=== PATIENT | female | born 1975 | race Caucasian/White ===

== ENCOUNTER 2018-08-12 17:55 | Emergency (ER) | payer BC ==
[2018-08-12 18:39] VITALS: BP 117/66
--- NOTE | 2018-08-12 21:11 | RAD ---
EXAM: CT Abdomen and Pelvis Without Intravenous Contrast CLINICAL HISTORY: 43 years old, female; Pain; Other: Lt flank pain; Prior surgery; Surgery date: 6+ months; Surgery type: Essure coils. Uterine mass removed 10 yrs ago; Additional info: Left flank pain TECHNIQUE: Axial computed tomography images of the abdomen and pelvis without intravenous contrast. All CT scans at this facility use at least one of these dose optimization techniques: automated exposure control; mA and/or kV adjustment per patient size (includes targeted exams where dose is matched to clinical indication); or iterative reconstruction. Coronal and sagittal reformatted images were created and reviewed. COMPARISON: DX - (L-SPINE L5-S1, PELVIS, ) 05/25/2013 10:09 AM FINDINGS: Lung bases: Unremarkable. No mass. No consolidation. ABDOMEN: Liver: Unremarkable. Gallbladder and bile ducts: Unremarkable. No calcified stones or biliary dilation. Pancreas: Unremarkable. No mass Spleen: Unremarkable. Adrenals: Unremarkable. No mass. Kidneys and ureters: A 3 mm calcification is noted near the expected location of the left UVJ. However, there is no significant perinephric stranding or hydronephrosis on either side. Stomach and bowel: Unremarkable. No obstruction. PELVIS: Appendix: No findings to suggest acute appendicitis. Bladder: The urinary bladder is decompressed but contains no calcified stones. Reproductive: A 4.7 cm cystic structure is present in the left adnexa. The uterus is prominent. Bilateral fallopian tube closure devices in place. ABDOMEN and PELVIS: Intraperitoneal space: A tiny amount of free fluid is noted in the pelvis. Bones/joints: No acute fracture or aggressive osseous lesions Soft tissues: Unremarkable. Vasculature: Unremarkable. No abdominal aortic aneurysm. Lymph nodes: Unremarkable. No enlarged lymph nodes. Tubes, lines and devices: IMPRESSION: 1. 3 mm calcification in the left pelvis suggests either phlebolith versus nonobstructing distal ureteral calculus at the left UVJ. No hydronephrosis or hydroureter. If there is continued clinical concern, contrast enhanced CT may be helpful.. 2. 4.7 cm left adnexal cyst, possibly arising from the left ovary. Pelvic ultrasound may be helpful for further assessment. 3. Small amount of free fluid in the pelvis.
--- NOTE | 2018-08-12 21:53 | UC ---
Abdominal Pain Female HPI - HPI Summary HPI Summary: 43 year old woman comes to the clinic with a complaint of intermittent left flank pain. She's had 2 episodes today. When she has the pain she cannot make it worse or better. It's in the left flank and it does radiate down towards the left groin. No fevers. Patient is having her menses now and she has blood in her urine. No prior history of kidney stones. She has an IUD in place. No abdominal surgeries. - History of Current Complaint Chief Complaint: UCBackPain Stated Complaint: LEFT SIDE BACK PAIN Time Seen by Provider: 08/12/18 18:37 Hx Last Menstrual Period: 08/11/18 Pain Intensity: 0 Pain Scale Used: 0-10 Numeric Allergies/Adverse Reactions: Allergies Allergy/AdvReac Type Severity Reaction Status Date / Time No Known Allergies Allergy Verified 08/12/18 18:28 Home Medications: Home Medications Folic Acid TAB* [Folvite TAB*] 1 mg PO DAILY 08/12/18 [History Confirmed ] Ibuprofen TAB* [Advil TAB*] 600 mg PO Q6H PRN 08/12/18 [History Confirmed ] Methotrexate TAB* 2.5 mg PO Q7D 08/12/18 [History Confirmed 08/12/18] PMH/Surg Hx/FS Hx/Imm Hx Previously Healthy: Yes Cardiovascular History: Hypertension - Surgical History Surgical History: Yes Surgery Procedure, Year, and Place: ESURE COILS. UTERINE MASS REMOVED 10 YRS AGO AT [facility] - Family History Known Family History: Positive: Other - SISTER WITH OVARIAN CYSTS NO FHX OF KIDNEY STONES - Social History Alcohol Use: Rare Substance Use Type: None Smoking Status (MU): Never Smoked Tobacco Review of Systems Constitutional: Negative Skin: Negative Eyes: Negative ENT: Negative Respiratory: Negative Cardiovascular: Negative Gastrointestinal: Abdominal Pain - LEFT FLANK, Vomiting - WHEN THE PAIN WAS AT IT'S WORST, Nausea Genitourinary: Hematuria Motor: Negative Neurovascular: Negative Musculoskeletal: Negative Neurological: Negative Psychological: Negative Is Patient Immunocompromised?: No All Other Systems Reviewed And Are Negative: Yes Physical Exam Triage Information Reviewed: Yes Appearance: Well-Appearing, Pain Distress - MILD Vital Signs: Initial Vital Signs Temp 98.3 F 08/12/18 18:31 Pulse 60 08/12/18 18:31 Resp 18 08/12/18 18:31 BP 117/66 09/11/18 18:31 Pulse Ox 100 08/12/18 18:31 Vital Signs Reviewed: Yes Eye Exam: Normal ENT Exam: Normal Neck exam: Normal Neck: Positive: Supple Respiratory Exam: Normal Respiratory: Positive: Lungs clear, Normal breath sounds, No respiratory distress Cardiovascular Exam: Normal Cardiovascular: Positive: RRR Abdomen Description: Positive: Soft, CVA Tenderness (L) Bowel Sounds: Positive: Present Musculoskeletal Exam: Normal Musculoskeletal: Positive: Strength Intact Neurological Exam: Normal Psychological Exam: Normal Skin Exam: Normal Diagnostics - Laboratory Diagnostic Studies Completed/Ordered: Order Information: CT ABD/PEL W/O. Accession Number: [id number]. CPT: 19322. EXAM: CT Abdomen and Pelvis Without Intravenous Contrast. CLINICAL HISTORY: 43 years old, female; Pain; Other: Lt flank pain; Prior surgery; Surgery. date: 6+ months; Surgery type: Essure coils. Uterine mass removed 10 yrs ago;. Additional info: Left flank pain. TECHNIQUE: Axial computed tomography images of the abdomen and pelvis without. intravenous contrast. All CT scans at this facility use at least one of these. dose optimization techniques: automated exposure control; mA and/or kV. adjustment per patient size (includes targeted exams where dose is matched to. clinical indication); or iterative reconstruction. Coronal and sagittal reformatted images were created and reviewed. COMPARISON: DX - (L-SPINE L5-S1 , PELVIS, ) 05/25/2013 10:09 AM. FINDINGS: Lung bases: Unremarkable. No mass. No consolidation. ABDOMEN: Liver: Unremarkable. Gallbladder and bile ducts: Unremarkable. No calcified stones or biliary. dilation. Pancreas: Unremarkable. No mass. Spleen: Unremarkable. Adrenals: Unremarkable. No mass. Kidneys and ureters: A 3 mm calcification is noted near the expected. location of the left UVJ. However, there is no significant perinephric. stranding or hydronephrosis on either side. Stomach and bowel: Unremarkable. No obstruction. PELVIS: Appendix: No findings to suggest acute appendicitis. Bladder: The urinary bladder is decompressed but contains no calcified. stones. Reproductive: A 4.7 cm cystic structure is present in the left adnexa. The. uterus is prominent. Bilateral fallopian tube closure devices in place. ABDOMEN and PELVIS: Intraperitoneal space: A tiny amount of free fluid is noted in the pelvis. Bones/joints: No acute fracture or aggressive osseous lesions. Soft tissues: Unremarkable. Vasculature: Unremarkable. No abdominal aortic aneurysm. Lymph nodes: Unremarkable. No enlarged lymph nodes. Tubes, lines and devices: IMPRESSION: 1. 3 mm calcification in the left pelvis suggests either phlebolith versus. nonobstructing distal ureteral calculus at the left UVJ. No hydronephrosis or. hydroureter. If there is continued clinical concern, contrast enhanced CT may. be helpful.. 2. 4.7 cm left adnexal cyst, possibly arising from the left ovary. Pelvic. ultrasound may be helpful for further assessment. 3. Small amount of free fluid in the pelvis. _ . <Electronically signed by Mirna Scott MD in [place]> 08/12/182109 Abd Pain Female Course/Dx - Course Course Of Treatment: UA SHOWED SOME BLOOD AND TRACE LEUKOCYTES. PATIENT DENIES UTI SX. Discussed the results of the CT with the patient and her . Patient had 2 brief episodes of pain in the clinic. The CT showed a 3 mm stone that is either a kidney stone or phlebolith at the distal left ureter which is nonobstructing. Therefore should not be causing any pain any longer. There is also a 4.7 cm left pelvic cyst. We discussed the possibility of kidney stone was passed which has patient should no longer having any pain. The other option is the cyst is causing intermittent torsion or it's leaking intermittently causing pain. I discussed that she has any more pain the cause could be intermittent ovarian torsion and she needed to go to the emergency department right away for further evaluation. - Differential Dx/Diagnosis Provider Diagnoses: LEFT FLANK PAIN. LEFT ABDOMINAL PAIN. LEFT OVARIAN CYST Discharge - Sign-Out/Discharge Documenting (check all that apply): Patient Departure All imaging exams completed and their final reports reviewed: Yes - Discharge Plan Condition: Stable Disposition: HOME Patient Education Materials: Ovarian Cyst (ED), Kidney Stones (ED), Acute Abdominal Pain (ED), Flank Pain (ED) Referrals: Jay Jay Nuno [Primary Care Provider] - Additional Instructions: FOLLOW UP WITH YOUR DOCTOR. STRAIN YOUR URINE; IF YOU CATCH A STONE, BRING IT TO YOUR DOCTOR. YOUR CT SCAN SHOWED A 4.7CM OVARIAN CYST WHICH COULD BE CAUSING INTERMITTENT OVARIAN TORSION; IF YOU HAVE ANY FURTHER PAIN, GO TO THE EMERGENCY DEPARTMENT FOR FURTHER EVALUATION. GO TO THE EMERGENCY DEPARTMENT FOR ANY WORSENING OF YOUR CONDITION; PAIN, FEVER , YOU FEEL ILL OR QUESTIONS OR CONCERNS. - Billing Disposition and Condition Condition: STABLE Disposition: Home - Attestation Statements Document Initiated by Scribe: No
== END 2018-08-12 21:32 | disposition home or self-care (01) ==
LOC: UCCORT 17:55
DX: R10.9 Unspecified abdominal pain (principal); N83.202 Unspecified ovarian cyst, left side; I10 Essential (primary) hypertension
CPT/HCPCS: 74176; 81003; 84702; 87086; 99211; G0463

== ENCOUNTER 2020-02-03 11:03 | Emergency (ER) | payer BC ==
[2020-02-03 11:53] VITALS: BP 114/67
--- NOTE | 2020-02-03 12:06 | UC ---
Throat Pain/Nasal Delroy HPI - HPI Summary HPI Summary: 45 y/o female presents to the urgent care c/o Sinus congestion, pressure and headaches since Saturday01/30/2020. Body aches and mild fever at home,nasal discharge is clear associated w/ a dry cough. 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 Pt has taken OTC medication w/o any improvement since she has Hx of sinusitis in the past. Pt denies dizziness, neck pain, chest pain, abdominal pain, N/V/D, recent travel outside the country. - History of Current Complaint Chief Complaint: UCGeneralIllness Stated Complaint: SINUS COMPLAINT Time Seen by Provider: 02/03/20 12:04 Hx Obtained From: Patient Hx Last Menstrual Period: 08/11/18 ?: No Onset/Duration: Gradual Onset, Lasting Days - 5 days, Still Present, Worse Since - 2 days ago Severity: Moderate Pain Intensity: 6 - bodyu aches and URIAS Pain Scale Used: 0-10 Numeric Cough: Nonproductive Associated Signs & Symptoms: Positive: Sinus Discomfort, Nasal Discharge, Fever - low grade fever and chills at home, Other - URIAS. Negative: Dysphagia, Wheezing , Hoarseness - Epiglottits Risk Factors Epiglottis Risk Factors: Negative - Allergies/Home Medications Allergies/Adverse Reactions: Allergies Allergy/AdvReac Type Severity Reaction Status Date / Time No Known Allergies Allergy Verified 02/03/20 11:51 Home Medications: Home Medications Folic Acid TAB* [Folvite TAB*] 1 mg PO DAILY 08/12/18 [History Confirmed ] Methotrexate TAB* 2.5 mg PO Q7D 08/12/18 [History Confirmed 02/03/20] PMH/Surg Hx/FS Hx/Imm Hx Previously Healthy: Yes Other Endocrine History: RA, anemia - Surgical History Surgical History: Yes Surgery Procedure, Year, and Place: ESURE COILS. UTERINE MASS REMOVED 10 YRS AGO AT [facility]. hysterectomy - Family History Known Family History: Positive: Hypertension, Other - SISTER WITH OVARIAN CYSTS NO FHX OF KIDNEY STONES Family History: dyslipidemia - Social History Occupation: Employed Full-time Lives: With Family Alcohol Use: Rare Substance Use Type: None Smoking Status (MU): Never Smoked Tobacco Review of Systems All Other Systems Reviewed And Are Negative: Yes Constitutional: Positive: Fever - low grade fever at home, Chills, Fatigue, Other - body aches Skin: Positive: Negative Eyes: Positive: Negative ENT: Positive: Nasal Discharge, Sinus Congestion, Sinus Pain/Tenderness, Other - PND Respiratory: Positive: Cough - dry Cardiovascular: Positive: Negative Gastrointestinal: Positive: Negative Genitourinary: Positive: Negative Motor: Positive: Negative Neurovascular: Positive: Negative Musculoskeletal: Positive: Myalgia Neurological/Mental Status: Positive: Headache Psychological: Positive: Negative Is Patient Immunocompromised?: No Physical Exam - Summary Physical Exam Summary: VITAL SIGNS: Reviewed. GENERAL: Patient is a well developed and nourished female who is sitting comfortably in the examining table. Patient is not in any acute respiratory distress. HEAD AND FACE: No signs of trauma. No ecchymosis, hematomas or skull depressions. No sinus tenderness. EYES: PERRLA, EOMI x 2, No injected conjunctiva, no nystagmus. No photophobia. EARS: Hearing grossly intact. Ear canals and tympanic membranes are within normal limits. MOUTH: Positive pharynx with mild erythema, no exudates, No B/L tonsillar enlargement , no exudate. Uvula in midline. edematous nasal mucosa w/ clear nasal discharge, clear PND NECK: Supple, trachea is midline, Positive anterior cervical lymphadenopathy, no JVD, no carotid bruit, no c-spine tenderness, neck with full ROM. No meningeal signs, no Kernig's or brudzinskis signs. CHEST: Symmetric, no tenderness at palpation LUNGS: Clear to auscultation bilaterally. No wheezing or crackles. CVS: Regular rate and rhythm, S1 and S2 present, no murmurs or gallops appreciated. ABDOMEN: Soft, non-tender. No signs of distention. No rebound no guarding, and no masses palpated. Bowel sounds are normal. EXTREMITIES: FROM in all major joints, no edema, no cyanosis or clubbing. NEURO: Alert and oriented x 3. No acute neurological deficits. Pt follows commands. SKIN: Dry and warm Triage Information Reviewed: Yes Vital Signs: Initial Vital Signs Temp 98.9 F 02/03/20 11:50 Pulse 57 02/03/20 11:50 Resp 15 02/03/20 11:50 BP 114/67 02/03/20 11:50 Pulse Ox 100 02/03/20 11:50 Throat Pain/Nasal Course/Dx - Course Course Of Treatment: 45 y/o female presents to the urgent care c/o Sinus congestion, pressure and headaches since Saturday01/30/2020. Body aches and mild fever at home,nasal discharge is clear associated w/ a dry cough. 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 Pt has taken OTC medication w/o any improvement since she has Hx of sinusitis in the past. Pt denies dizziness, neck pain, chest pain, abdominal pain, N/V/D, recent travel outside the country. Hx obtained. Pt with URI on examination. Rapid strep ordered, result: negative.Influenza A&B ordered: result: Influenza A positive.Pt explained she is out the therapeutic window for Tamiflu PO and advised to take Ibuprofen PO to alleviate symptoms. Advised on hand washing and wearing a mask to avoid spreading. Pt advised to rest, increase fluid intake, eat well and avoid strenuous exercise. If symptoms do not improve or worsen advised to return to the urgent care or f/u with her PCP for further evaluation and treatment. Pt understood and agreed w/ plan of care - Differential Dx/Diagnosis Differential Diagnosis/HQI/PQRI: Influenza, Laryngitis, Mononucleosis, Pharyngitis, Sinusitis, Tonsillitis, URI Provider Diagnosis: Influenza A Discharge ED - Sign-Out/Discharge Documenting (check all that apply): Patient Departure - D/C home All imaging exams completed and their final reports reviewed: No - Discharge Plan Condition: Stable Disposition: HOME Patient Education Materials: Influenza (ED) Forms: *Work Release Referrals: Jay Jay Nuno [Primary Care Provider] - 3 Days Additional Instructions: 1- You tested Positive for Influenza A, Tamiflu PO is already out of the therapeutic window, ance. Encourage symptomatic treatment, hand washing and wear a mask to avoid spreading. 2-Please continue taking Tylenol PO Ot Ibuprofen PO q6-8hrs prn as instructed after meals to alleviate fever, and sore throat. Increase fluid intake, eat well, rest and avoid strenuous exercise 3-If symptoms do not improve or worsen please return to the urgent care or f/u with your PCP in 3 days for further evaluation and treatment. - Billing Disposition and Condition Condition: STABLE Disposition: Home
[2020-02-03 12:23] LABS: Influenza A Molecular POSITIVE (Negative)
== END 2020-02-03 12:37 | disposition home or self-care (01) ==
LOC: UCCORT 11:03
DX: J10.1 Influenza due to other identified influenza virus with other respiratory manifestations (principal); M06.9 Rheumatoid arthritis, unspecified; Z79.899 Other long term (current) drug therapy
CPT/HCPCS: 99211; G0463